=== PATIENT | male | born 1945 | race Caucasian/White ===

== ENCOUNTER 2017-12-08 15:00 | Outpatient (CLI) | payer OTHER ==
[~2017-12-08] VITALS: Ht 167.6 cm; Wt 93.0 kg
== END 2017-12-08 16:00 ==
LOC: PREOP 15:00
PROVIDERS: ATTEND Surgery
DX: Z01.818 Encounter for other preprocedural examination (principal)

== ENCOUNTER 2017-12-14 07:25 | Day surgery (SDC) | payer OTHER ==
[~2017-12-14] VITALS: Ht 167.6 cm; Wt 93.0 kg
--- OUTSIDE RECORDS SUMMARY | 2017-12-14 07:28 | XMS REPORT ---
Author Author LORI Charles [facility] Address Unknown Care Team Providers Care Multimedia Producer Name Role Phone LORI Charles Unavailable PROBLEMS Unknown Problems ALLERGIES Substance Reaction Event Type Date Status N.K.D.A. Unknown Non Drug Allergy Jun, Unknown SOCIAL HISTORY No smoking Hx information available PLAN OF CARE Activity Details Follow Up prn Reason:TE VITAL SIGNS Blood pressure systolic 137 mmHg 2016-06-29 Blood pressure diastolic 85 mmHg 2016-06-29 MEDICATIONS Medication Instructions Dosage Frequency Start Date End Date Duration Status Clonazepam 0.5 MG Orally Twice a day 1 tablet 12h Active Mupirocin Active Ledipasvir-Sofosbuvir 90-400 MG Orally Once a day 1 tablet 24h Active Aspirin Active Enalapril Maleate Active Escitalopram Oxalate Active RESULTS No Results PROCEDURES Procedure Date Ordered Related Diagnosis Body Site EXTRAC ERUPTED TOOTH/EXPOSED ROOT Jun 29, 2016 EXTRAC ERUPTED TOOTH/EXPOSED ROOT Jun 29, 2016 EXTRAC ERUPTED TOOTH/EXPOSED ROOT Jun 29, 2016 EXTRAC ERUPTED TOOTH/EXPOSED ROOT Jun 29, 2016 Billing Notes on claim Jun 29, 2016 EXTRAC ERUPTED TOOTH/EXPOSED ROOT Jun 29, 2016 IMMUNIZATIONS No Known Immunizations
--- OUTSIDE RECORDS SUMMARY | 2017-12-14 07:28 | XMS REPORT ---
Author Author YANNICK MARCANO Organization [facility] Address [address] [place] [address] Care Team Providers Care Slater Apprentice Name Role Phone YANNICK MARCANO Unavailable PROBLEMS Unknown Problems ALLERGIES No Information SOCIAL HISTORY Never Assessed PLAN OF CARE Activity Details Follow Up prn Reason: VITAL SIGNS MEDICATIONS Unknown Medications RESULTS No Results PROCEDURES Procedure Date Ordered Result Body Site INTRAORL-PERIAPICAL 1 FILM [id number] November 01, 2016 EXTRAC ERUPTED TOOTH/EXPOSED ROOT November 01, 2016 Dental Outreach adjust balance November 01, 2016 Dental no charge November 01, 2016 IMMUNIZATIONS No Known Immunizations MEDICAL (GENERAL) HISTORY Type Description Date Medical History Hep C Surgical History Gallbladder
--- OUTSIDE RECORDS SUMMARY | 2017-12-14 07:29 | XMS REPORT ---
Author Author LORI Charles [facility] Address Unknown Care Team Providers Care Prepared Foods Service Team Member Name Role Phone LORI Charles Unavailable PROBLEMS Unknown Problems ALLERGIES Substance Reaction Event Type Date Status N.K.D.A. Unknown Non Drug Allergy Jul, Unknown SOCIAL HISTORY No smoking Hx information available PLAN OF CARE Activity Details Follow Up prn Reason:all lower te VITAL SIGNS Blood pressure systolic 109 mmHg 2016-07-06 Blood pressure diastolic 62 mmHg 2016-07-06 MEDICATIONS Medication Instructions Dosage Frequency Start Date End Date Duration Status Ledipasvir-Sofosbuvir 90-400 MG Orally Once a day 1 tablet 24h Active Clonazepam 0.5 MG Orally Twice a day 1 tablet 12h Active Aspirin Active Escitalopram Oxalate Active Enalapril Maleate Active Mupirocin Active RESULTS No Results PROCEDURES Procedure Date Ordered Related Diagnosis Body Site EXTRAC ERUPTED TOOTH/EXPOSED ROOT Jul 06, 2016 EXTRAC ERUPTED TOOTH/EXPOSED ROOT Jul 06, 2016 Billing Notes on claim Jul 06, 2016 EXTRAC ERUPTED TOOTH/EXPOSED ROOT Jul 06, 2016 EXTRAC ERUPTED TOOTH/EXPOSED ROOT Jul 06, 2016 EXTRAC ERUPTED TOOTH/EXPOSED ROOT Jul 06, 2016 EXTRAC ERUPTED TOOTH/EXPOSED ROOT Jul 06, 2016 IMMUNIZATIONS No Known Immunizations
--- OUTSIDE RECORDS SUMMARY | 2017-12-14 07:29 | XMS REPORT ---
Author Author LORI Charles [facility] Address Unknown Care Team Providers Care Rate Examiner Name Role Phone LORI Charles Unavailable PROBLEMS Unknown Problems ALLERGIES Substance Reaction Event Type Date Status N.K.D.A. Unknown Non Drug Allergy Jul, Unknown SOCIAL HISTORY No smoking Hx information available PLAN OF CARE Activity Details Follow Up 6 Weeks Reason:u/l impressions for dentures VITAL SIGNS Blood pressure systolic 156 mmHg 2016-07-13 Blood pressure diastolic 105 mmHg 2016-07-13 MEDICATIONS Medication Instructions Dosage Frequency Start Date End Date Duration Status Escitalopram Oxalate Active Aspirin Active Mupirocin Active Ledipasvir-Sofosbuvir 90-400 MG Orally Once a day 1 tablet 24h Active Clonazepam 0.5 MG Orally Twice a day 1 tablet 12h Active Enalapril Maleate Active RESULTS No Results PROCEDURES Procedure Date Ordered Related Diagnosis Body Site EXTRAC ERUPTED TOOTH/EXPOSED ROOT Jul 13, 2016 EXTRAC ERUPTED TOOTH/EXPOSED ROOT Jul 13, 2016 EXTRAC ERUPTED TOOTH/EXPOSED ROOT Jul 13, 2016 EXTRAC ERUPTED TOOTH/EXPOSED ROOT Jul 13, 2016 Billing Notes on claim Jul 13, 2016 EXTRAC ERUPTED TOOTH/EXPOSED ROOT Jul 13, 2016 IMMUNIZATIONS No Known Immunizations
--- OUTSIDE RECORDS SUMMARY | 2017-12-14 07:29 | XMS REPORT ---
Author Author LORI Charles [facility] Address Unknown Care Team Providers Care Marine Engine Mechanic Name Role Phone LORI Charles Unavailable PROBLEMS Unknown Problems ALLERGIES Substance Reaction Event Type Date Status N.K.D.A. Unknown Non Drug Allergy Jun, Unknown SOCIAL HISTORY No smoking Hx information available PLAN OF CARE Activity Details Follow Up TE Reason: VITAL SIGNS Heart Rate 56 bpm 2016-06-22 Blood pressure systolic 136 mmHg 2016-06-22 Blood pressure diastolic 78 mmHg 2016-06-22 MEDICATIONS Medication Instructions Dosage Frequency Start Date End Date Duration Status Clonazepam 0.5 MG Orally Twice a day 1 tablet 12h Active Ledipasvir-Sofosbuvir 90-400 MG Orally Once a day 1 tablet 24h Active RESULTS No Results PROCEDURES Procedure Date Ordered Related Diagnosis Body Site EXTRAC ERUPTED TOOTH/EXPOSED ROOT Jun 22, 2016 EXTRAC ERUPTED TOOTH/EXPOSED ROOT Jun 22, 2016 Billing Notes on claim Jun 22, 2016 EXTRAC ERUPTED TOOTH/EXPOSED ROOT Jun 22, 2016 EXTRAC ERUPTED TOOTH/EXPOSED ROOT Jun 22, 2016 EXTRAC ERUPTED TOOTH/EXPOSED ROOT Jun 22, 2016 EXTRAC ERUPTED TOOTH/EXPOSED ROOT Jun 22, 2016 IMMUNIZATIONS No Known Immunizations
--- OUTSIDE RECORDS SUMMARY | 2017-12-14 07:29 | XMS REPORT ---
Author Author LORI Charles [facility] Address Unknown Care Team Providers Care Store Director Name Role Phone LORI Charles Unavailable PROBLEMS Unknown Problems ALLERGIES Substance Reaction Event Type Date Status N.K.D.A. Unknown Non Drug Allergy May, Unknown SOCIAL HISTORY No smoking Hx information available PLAN OF CARE Activity Details Follow Up prn Reason:1 hr upper te VITAL SIGNS Blood pressure systolic 132 mmHg 2016-05-10 Blood pressure diastolic 73 mmHg 2016-05-10 MEDICATIONS Medication Instructions Dosage Frequency Start Date End Date Duration Status Enalapril Maleate Active Mupirocin Active Escitalopram Oxalate Active Aspirin Active RESULTS No Results PROCEDURES Procedure Date Ordered Related Diagnosis Body Site LTD ORAL EVALUATION - PROBLEM FOCUS May 10, 2016 PANORAMIC FILM SEE ALSO CODE [id number] May 10, 2016 IMMUNIZATIONS No Known Immunizations
[2017-12-14] MEDS ORDERED: LACTATED RINGERS 1,000 ML IV STA (07:45)
[2017-12-14 07:47] VITALS: BP 136/88
[2017-12-14] MEDS ORDERED: NS IV 500 ML 500 ML ONE (07:54)
[2017-12-14] MEDS ORDERED: NS IV 500 ML 500 ML IV ONE (08:00)
--- NOTE | 2017-12-14 08:09 | Progress Note-Pre Operative ---
Pre-Operative Progress Note H&P Reviewed The H&P was reviewed, patient examined and no changes noted. Time Seen by Provider: 08:03 Date H&P Reviewed: Dec 14, 2017 Time H&P Reviewed: 08:05 Pre-Operative Diagnosis: screening colonoscopy ANGELO WYNN DO Dec 14, 2017 08:09
[2017-12-14] MEDS ORDERED: ESCI20TA45 PO (08:10)
[2017-12-14] MEDS ORDERED: TAMS0.4C2 PO (08:10)
[2017-12-14] MEDS ORDERED: TR1C15 TP (08:10)
[2017-12-14] MEDS ORDERED: MULT-1042 PO (08:10)
[2017-12-14] MEDS ORDERED: ASPI-983 PO (08:10)
[2017-12-14] MEDS ORDERED: CLON0.5T3 PO (08:10)
[2017-12-14] MEDS ORDERED: ENAL20TA PO (08:10)
[2017-12-14] MEDS ORDERED: MIDAZOLAM 2 MG/2 ML (VERSED) VIAL ONE (08:24)
[2017-12-14] MEDS ORDERED: PROPOFOL INJECTION 50 ML IV ONE (08:24)
--- NOTE | 2017-12-14 09:13 | Progress Note-Post Operative ---
Post-Operative Progess Note Surgeon (s)/Airborne Operations Superintendent (s) Surgeon ANGELO WYNN DO Airborne Operations Superintendent: none Pre-Operative Diagnosis screening colonoscopy Post-Operative Diagnosis colon polyps diverticula int hemorrhoids Procedure & Operative Findings Date of Procedure 12/14/17 Procedure Performed/Findings 1. Colon with snare 2. Colon with hot bx Anesthesia Type IV sedation by ZONE MANAGER Estimated Blood Loss Estimated blood loss (mL): scant Specimens/Packing Specimens Removed asc colon polyp bx x 3 pieces of same polyp sigmoid polyp ANGELO WYNN DO Dec 14, 2017 09:13
--- NOTE | 2017-12-14 09:14 | Endoscopy Discharge Instruct ---
Endo Procedure/Findings Findings 1.: Polyp 2.: Diverticulosis 3.: Internal Hemorrhoids Discharge Instructions - Activity: You might feel a little sleepy until tomorrow. This is due to the medicine you received to relax you. Until tomorrow, you should: NOT drive a car, operate machinery or power tools. NOT drink any alcoholic beverages. NOT make any important decisions or sign importortant papers. Do not return to work until tomorrow, unless otherwise instructed. Resume previous activities tomorrow. Diet: Start by taking liquids. If you tolerate liquids, advance to solid food. Make appointment for one week, Notify Physician - If you experience excessive bleeding, unusual abdominal pain, fever, or chest pain, contact your doctor immediately. Follow-Up: - I have received and understand the above instructions and will call my doctor if I have any further questions. Patient Signature Date Nurse Signature Other (Relationship) ANGELO WYNN DO Dec 14, 2017 09:14
[2017-12-14 09:20] VITALS: BP 104/69
[2017-12-14 09:50] VITALS: BP 112/71
[2017-12-14 10:00] VITALS: BP 112/71
--- NOTE | 2017-12-14 16:28 | OPERATIVE REPORT ---
DATE OF SERVICE: 12/14/2017 PREOPERATIVE DIAGNOSIS: Screening colonoscopy. POSTOPERATIVE DIAGNOSES: 1. Colon polyps. 2. Diverticula. 3. Internal hemorrhoids. PROCEDURE: 1. Colonoscopy with snare polypectomy. 2. Colonoscopy with hot biopsy. SURGEON: Lupillo Sommers DO WIDE AREA NETWORK ENGINEER: None. ANESTHESIA: IV sedation by GUN NUMBERER. SPECIMEN: One polyp from the ascending colon and one polyp from the sigmoid colon. BLOOD LOSS: Scant. FLUIDS: Per anesthesia. POSTOPERATIVE CONDITION: Stable. INDICATION FOR PROCEDURE: The patient is a 72-year-old male who needs a screening colonoscopy. FINDINGS: The patient had a small flat polyp in the ascending colon. He also had a much larger polyp in the sigmoid colon and he had large diverticula throughout and he had some small internal hemorrhoids. PROCEDURE NOTE: After informed consent was obtained, the patient was brought to the endoscopy suite and placed in the bed in left lateral decubitus position. He was administered IV sedation by the GUN NUMBERER who then monitored vitals the entire time, heart rate, blood pressure and pulse ox, and the scope was inserted, pushed all the way to about [address] in, noted large diverticula, mostly in the sigmoid and descending colon, but also throughout the colon. Got to the cecum, took a picture of appendiceal orifice, noted the ileocecal valve, then slowly withdrew the scope insufflating to look circumferentially [place] looking at the cecum up the ascending colon and in the ascending colon, saw small flat polyp. I elected to remove this with hot biopsy, able to get in 3 pieces and remove it completely. It will be sent to pathology, then continued up to the hepatic flexure, then down the transverse colon, the splenic flexure, into the descending colon and down into the sigmoid and the sigmoid, saw a larger polyp, elected to do a snare polypectomy of this. Removed the polyp in total and then continued down the sigmoid colon into the rectum, retroflexed and rectal vault, saw some minimal internal hemorrhoids, took a picture of this and then removed the scope. The patient tolerated the procedure. He was recovered in the endoscopy suite. Job ID: [id number] DocumentID: [id number] Dictated Date: 12/14/2017 11:59:54 Lumber Marker Date: 12/14/2017 16:28:20 Dictated By: LUPILLO SOMMERS DO
== END 2017-12-14 10:05 | disposition home or self-care (01) ==
LOC: ENDO 07:25
PROVIDERS: ATTEND Surgery
DX: Z12.11 Encounter for screening for malignant neoplasm of colon (principal); D12.2 Benign neoplasm of ascending colon; D12.5 Benign neoplasm of sigmoid colon; K57.30 Diverticulosis of large intestine without perforation or abscess without bleeding; K64.8 Other hemorrhoids; I10 Essential (primary) hypertension; Z79.82 Long term (current) use of aspirin; Z79.899 Other long term (current) drug therapy
CPT/HCPCS: 88305

== ENCOUNTER 2018-03-02 13:10 | Observation (INO) | payer MEDICARE, OTHER ==
[~2018-03-02] VITALS: Ht 167.6 cm; Wt 93.9 kg
[~2018-03-02 13:10] MED LIST: ASPI-983 PO; CLON0.5T13 PO; ENAL20TA PO; ESCI20TA45 PO; MULT-1042 PO; TAMS0.4C2 PO; TR1C15 TP
[2018-03-02 13:23] LABS: BASOPHILS % (AUTO) 0 % (0-10); EOSINOPHILS # (AUTO) 0.1 10^3/uL (0.0-0.3); EOSINOPHILS % (AUTO) 1 % (0-10); HEMATOCRIT 39 % (40-54); HEMOGLOBIN 13.4 G/DL (13.3-17.7); LYMPHOCYTES % (AUTO) 27 % (12-44); MEAN CORPUSCULAR HEMOGLOBIN 33 PG (25-34); MEAN CORPUSCULAR HGB CONC 34 G/DL (32-36); MEAN CORPUSCULAR VOLUME 95 FL (80-99); MEAN PLATELET VOLUME 8.7 FL (7.4-10.4); MONOCYTES # (AUTO) 0.8 X 10^3 (0.0-1.0); MONOCYTES % (AUTO) 10 % (0-12); NEUTROPHILS # (AUTO) 4.5 X 10^3 (1.8-7.8); NEUTROPHILS % (AUTO) 62 % (42-75); PLATELET COUNT 414 10^3/uL (130-400); RED BLOOD COUNT 4.11 10^6/uL (4.35-5.85); RED CELL DISTRIBUTION WIDTH 12.2 % (10.0-14.5); WHITE BLOOD COUNT 7.3 10^3/uL (4.3-11.0)
[2018-03-02] MEDS ORDERED: NS IV 1000 ML 1,000 ML ONE (13:24)
[2018-03-02 13:35] LABS: PROTHROMBIN TIME PATIENT 13.3 SEC (12.2-14.7)
[2018-03-02 13:43] LABS: ALANINE AMINOTRANSFERASE 22 U/L (0-55); ALKALINE PHOSPHATASE 56 U/L (40-136); BILIRUBIN,TOTAL 0.5 MG/DL (0.1-1.0); BUN/CREATININE RATIO 15; CALCIUM 9.6 MG/DL (8.5-10.1); CARBON DIOXIDE 23 MMOL/L (21-32); CHLORIDE 105 MMOL/L (98-107); CREATININE SERUM 1.49 MG/DL (0.60-1.30); GFR ESTIMATED 46; GLUCOSE 93 MG/DL (70-105); MAGNESIUM 2.3 MG/DL (1.8-2.4); POTASSIUM 4.2 MMOL/L (3.6-5.0); SODIUM 136 MMOL/L (135-145); TOTAL PROTEIN 7.9 GM/DL (6.4-8.2)
[2018-03-02 13:50] LABS: MYOGLOBIN SERUM 76.5 NG/ML (10.0-92.0)
[2018-03-02 14:03] LABS: TSH (THYROID ANALYZER) 1.23 UIU/ML (0.35-4.94)
--- NOTE | 2018-03-02 14:18 | Diagnostic Imaging Report ---
INDICATION: Found unresponsive.. TECHNIQUE: Single view chest 1:45 PM. CORRELATION STUDY: None FINDINGS: The heart size, mediastinal configuration and pulmonary vascularity are within normal limits. The lungs are clear with no consolidating infiltrate. There is no significant effusion or pneumothorax. IMPRESSION: 1. Negative appearing portable chest. Dictated by: Dictated on workstation # [id number]
--- NOTE | 2018-03-02 14:58 | Diagnostic Imaging Report ---
INDICATION: Unresponsive TECHNIQUE: Routine non contrast-enhanced axial images were obtained from the skull base to the vertex. COMPARISON: None. FINDINGS: The ventricles and cortical sulci are diffusely prominent, compatible with age-related volume loss. There are confluent areas of abnormal, low attenuation in the periventricular white matter. This is consistent with small vessel ischemic changes; age-indeterminate. There is no prior study available for comparison. There is no midline shift or mass-effect. No acute intra-axial hemorrhage is seen. There are no abnormal areas of increased or decreased density to suggest acute hemorrhage or edema. No extra-axial masses or collections are present. The bony calvarium is intact. The visualized paranasal sinuses are unremarkable. The mastoid air cells are partially opacified on the right. IMPRESSION: 1. No acute intracranial abnormality. No CT evidence of mass, acute infarct or intracranial hemorrhage. 2. Small vessel ischemic changes in the periventricular and subcortical white matter; likely chronic. 3. Right mastoid air cell disease. In the correct clinical setting, findings can be seen with mastoiditis. Clinical correlation is recommended. Dictated by: Dictated on workstation # [id number]
--- NOTE | 2018-03-02 15:03 | ED Syncope ---
General Chief Complaint: General Problems/Pain Stated Complaint: UNRESPONSIVE Source of Information: Patient, EMS, Old Records Exam Limitations: No Limitations History of Present Illness Date Seen by Provider: Mar 02, 2018 Time Seen by Provider: 13:06 Initial Comments This 72-year-old gentleman is brought to the emergency room by EMS staff who witnessed his syncopal episode at a local restaurant. They brought him in the EMS pickup truck as no ambulance units were in proximity. Patient was sitting on a barstool at the restaurant when he suddenly became very diaphoretic. While EMS personnel were attempting to obtain a blood pressure the patient became unresponsive. His unresponsive episode lasted approximately 15-20 seconds. During that time a pulse was not palpable. Patient then became arousable and the pulse was palpated around 40 bpm. Manual blood pressure readings were attempted but could not be obtained. The fire department arrived and assessed vital signs with pulse oximetry. Heart rate was 46 at that time and patient was alert. Patient was able to ambulate to the trunk with assistance. Patient reported his leg felt weak or "asleep" but that resolved. Patient denies any chest pain, lightheadedness, shortness of breath, or other acute symptoms. He is grossly diaphoretic on arrival. Fingerstick blood sugar on arrival was 97. Patient goes to a clinic in [facility] for his primary care. Timing/Prior Episodes: No Prior History Symptoms Prior to Episode: Diaphoresis Precipitating Factors: None Episode Description: 15-20 sec Loss of Consciousness: Brief (Seconds) Current Symptoms: Back to Normal Allergies and Home Medications Allergies Coded Allergies: No Known Drug Allergies (Unverified , 12/08/17) Home Medications Aspirin 81 Mg Tablet.dr, 81 MG PO DAILY, (Reported) Clonazepam 0.5 Mg Tablet, 0.5 MG PO BID, (Reported) Escitalopram Oxalate 20 Mg Tablet, 20 MG PO DAILY, (Reported) Multivit-Min/Iron Fum/Folic AC 1 Each Tablet, 1 EACH PO DAILY, (Reported) Tamsulosin HCl 0.4 Mg Cap.er.24h, 0.4 MG PO DAILY, (Reported) Patient Home Medication List Home Medication List Reviewed: Yes Review of Systems Constitutional: see HPI EENTM: no symptoms reported Respiratory: no symptoms reported Cardiovascular: see HPI Gastrointestinal: no symptoms reported Genitourinary: no symptoms reported Musculoskeletal: no symptoms reported Skin: see HPI Psychiatric/Neurological: See HPI Past Ndppwrh-Jisscs-Sicmwz Hx Past Med/Social Hx: Reviewed and Corrections made Patient Social History Alcohol Use: Denies Use Recreational Drug Use: No Smoking Status: Never a Smoker Recent Hopitalizations: No Immunizations Up To Date Tetanus Booster (TDap): Unknown Seasonal Allergies Seasonal Allergies: No Past Medical History Surgeries: Yes Abdominal (colonoscopy with polypectomy), Gallbladder Respiratory: No Currently Using CPAP: No Currently Using BIPAP: No Cardiac: Yes Hypertension Neurological: Yes Traumatic Brain Injury Reproductive Disorders: No Sexually Transmitted Disease: No HIV/AIDS: No Genitourinary: Yes Prostate Problems Gastrointestinal: Yes Diverticulosis, Hemorrhoids, Hepatitis (hepatitis C treated and cured), Polyps Musculoskeletal: No Endocrine: No Cataract Loss of Vision: Denies Hearing Impairment: Denies Cancer: No Psychosocial: Yes Anxiety, Depression Integumentary: No Physical Exam Vital Signs Vital Signs - First Documented 03/02/18 13:10 Temp 98.6 Pulse 77 Resp 19 B/P (MAP) 106/89 (95) Capillary Refill : Height, Weight, BMI Height: 5'6.00" Weight: 205lbs. 0.0oz. 92.234928nv; 33.1 BMI Method: General Appearance: No Apparent Distress, WD/WN, Other (diaphoretic) HEENT: PERRL/EOMI, Normal ENT Inspection, Other (no tenderness over the mastoids) Neck: Normal Inspection Cardiovascular: Regular Rate, Rhythm, No Edema, No Murmur, Normal Peripheral Pulses Respiratory: Lungs Clear, Normal Breath Sounds, No Accessory Muscle Use, No Respiratory Distress Gastrointestinal: Normal Bowel Sounds, Non Tender, Soft Back: Normal Inspection, No Vertebral Tenderness Extremities: Normal Inspection, No Pedal Edema Neurologic/Psychiatric: Oriented x3, No Motor/Sensory Deficits, Normal Mood/ Affect, watermaster II-XII Norm as Tested Cranial Nerves: Normal Hearing, Normal Speech, PERRL Coordination/Gait: Normal Gait Motor/Sensory: No Motor Deficit, No Sensory Deficit, No Pronator Drift Skin: Normal Color, Diaphoresis Progress/Results/Core Measures Results/Orders Lab Results Laboratory Tests Test 03/02/18 13:12 03/02/18 13:27 03/02/18 14:59 Range/Units White Blood Count 7.3 4.3-11.0 10^3/uL Red Blood Count 4.11 L 4.35-5.85 10^6/uL Hemoglobin 13.4 13.3-17.7 G/DL Hematocrit 39 L 40-54 % Mean Corpuscular Volume 95 80-99 FL Mean Corpuscular Hemoglobin 33 25-34 PG Mean Corpuscular Hemoglobin Concent 34 32-36 G/DL Red Cell Distribution Width 12.2 10.0-14.5 % Platelet Count 414 H 130-400 10^3/uL Mean Platelet Volume 8.7 7.4-10.4 FL Neutrophils (%) (Auto) 62 42-75 % Lymphocytes (%) (Auto) 27 12-44 % Monocytes (%) (Auto) 10 0-12 % Eosinophils (%) (Auto) 1 0-10 % Basophils (%) (Auto) 0 0-10 % Neutrophils # (Auto) 4.5 1.8-7.8 X 10^3 Lymphocytes # (Auto) 2.0 1.0-4.0 X 10^3 Monocytes # (Auto) 0.8 0.0-1.0 X 10^3 Eosinophils # (Auto) 0.1 0.0-0.3 10^3/uL Basophils # (Auto) 0.0 0.0-0.1 10^3/uL Prothrombin Time 13.3 12.2-14.7 SEC INR Comment 1.0 0.8-1.4 Activated Partial Thromboplast Time 24 24-35 SEC Sodium Level 136 135-145 MMOL/L Potassium Level 4.2 3.6-5.0 MMOL/L Chloride Level 105 98-107 MMOL/L Carbon Dioxide Level 23 21-32 MMOL/L Anion Gap 8 5-14 MMOL/L Blood Urea Nitrogen 22 H 7-18 MG/DL Creatinine 1.49 H 0.60-1.30 MG/DL Estimat Glomerular Filtration Rate 46 BUN/Creatinine Ratio 15 Glucose Level 93 70-105 MG/DL Calcium Level 9.6 8.5-10.1 MG/DL Corrected Calcium 9.6 8.5-10.1 MG/DL Magnesium Level 2.3 1.8-2.4 MG/DL Total Bilirubin 0.5 0.1-1.0 MG/DL Aspartate Amino Transf (AST/SGOT) 26 5-34 U/L Alanine Aminotransferase (ALT/SGPT) 22 0-55 U/L Alkaline Phosphatase 56 40-136 U/L Myoglobin 76.5 10.0-92.0 NG/ML Troponin I < 0.30 <0.30 NG/ML Total Protein 7.9 6.4-8.2 GM/DL Albumin 4.0 3.2-4.5 GM/DL TSH [place] Testing 1.23 0.35-4.94 UIU/ML Serum Alcohol < 10 <10 MG/DL C-Reactive Protein High Sensitivity 0.15 0.00-0.50 MG/DL Urine Color YELLOW Urine Clarity CLEAR Urine pH 7 5-9 Urine Specific [place] 1.010 L 1.016-1.022 Urine Protein 1+ H NEGATIVE Urine Glucose (UA) NEGATIVE NEGATIVE Urine Ketones NEGATIVE NEGATIVE Urine Nitrite NEGATIVE NEGATIVE Urine Bilirubin NEGATIVE NEGATIVE Urine Urobilinogen NORMAL NORMAL MG/DL Urine Leukocyte Esterase NEGATIVE NEGATIVE Urine RBC (Auto) 1+ H NEGATIVE Urine RBC 0-2 /HPF Urine WBC NONE /HPF Urine Squamous Epithelial Cells RARE /HPF Urine Crystals NONE /LPF Urine Bacteria NONE /HPF Urine Casts NONE /LPF Urine Mucus NEGATIVE /LPF Urine Culture Indicated NO Urine Opiates Screen NEGATIVE NEGATIVE Urine Oxycodone Screen NEGATIVE NEGATIVE Urine Methadone Screen NEGATIVE NEGATIVE Urine Propoxyphene Screen NEGATIVE NEGATIVE Urine Barbiturates Screen NEGATIVE NEGATIVE Ur Tricyclic Antidepressants Screen NEGATIVE NEGATIVE Urine Phencyclidine Screen NEGATIVE NEGATIVE Urine Amphetamines Screen NEGATIVE NEGATIVE Urine Methamphetamines Screen NEGATIVE NEGATIVE Urine Benzodiazepines Screen NEGATIVE NEGATIVE Urine Cocaine Screen NEGATIVE NEGATIVE Urine Cannabinoids Screen NEGATIVE NEGATIVE My Orders Orders - VIOLETTA SALCIDO MD Cbc With Automated Diff (03/02/18 13:12) Magnesium (03/02/18 13:12) Chest 1 View, Ap/Pa Only (03/02/18 13:12) Ekg Tracing (03/02/18 13:12) Cardiac Profile 1 (03/02/18 13:12) Comprehensive Metabolic Panel (03/02/18 13:12) Myoglobin Serum (03/02/18 13:12) Protime With Inr (03/02/18 13:12) Partial Thromboplastin Time (03/02/18 13:12) O2 (03/02/18 13:12) Monitor-Rhythm Ecg Trace Only (03/02/18 13:12) Lipid Panel (03/03/18 06:00) Saline Lock/Iv-Start (03/02/18 13:12) Alcohol (03/02/18 13:12) Drug Screen Stat (Urine) (03/02/18 13:12) Thyroid Analyzer (03/02/18 13:12) Ua Culture If Indicated (03/02/18 13:12) Ns Iv 1000 Ml (Sodium Chloride 0.9%) (03/02/18 13:24) Hs C Reactive Protein (03/02/18 13:37) Ct Head Wo (03/02/18 14:40) Ns Iv 1000 Ml (Sodium Chloride 0.9%) (03/02/18 15:07) Ns Iv 1000 Ml (Sodium Chloride 0.9%) (03/02/18 15:07) Medications Given in ED Vital Signs/I&O 03/02/18 13:10 Temp 98.6 Pulse 77 Resp 19 B/P (MAP) 106/89 (95) Progress Progress Note : Time: 14:59 Progress Note Patient developed asymptomatic hypotension while in the ER. He received a liter of IV fluid which resolved the hypotension. Workup was relatively unremarkable except for some mild renal insufficiency. Case was discussed with Dr. Alford. He requested a CT of the head be performed. This will be done without contrast due to his renal function. Family is now present and provides additional history. Patient has no history of cardiac disease. He had one near syncopal episode many years ago which was volume related. Patient continues to deny chest pain, lightheadedness, shortness of breath, or other symptoms. EKG #1: EKG Time: 13:11 Rate: 66 Rhythm: Normal Sinus Intervals: Normal ECG Impression: Normal Comment Normal sinus rhythm with no abnormal intervals or axis deviation. There are subtle nondiagnostic ST changes. No overt ST elevation or depression to suggest ischemia. EKG #2: EKG Time: 13:43 Rate: 67 Rhythm: Normal Sinus Intervals: Normal ECG Impression: Normal Comment Normal sinus rhythm with no abnormal intervals or axis deviation. There are subtle nondiagnostic ST changes. No overt ST elevation or depression to suggest ischemia. Diagnostic Imaging Diagonstic Imaging: Xray Plain Films/CT/US/NM/MRI: chest Comments Chest x-ray report reviewed. See report below: NAME: RIZWANA BEVERLY Andre [facility] REC#: [id number] PT STATUS: REG ER : 1945 PHYSICIAN: VIOLETTA SALCIDO MD ADMIT DATE: 03/02/18/ER Signed Date of Exam: 03/02/18 CHEST 1 VIEW, AP/PA ONLY INDICATION: Found unresponsive.. TECHNIQUE: Single view chest 1:45 PM. CORRELATION STUDY: None FINDINGS: The heart size, mediastinal configuration and pulmonary vascularity are within normal limits. The lungs are clear with no consolidating infiltrate. There is no significant effusion or pneumothorax. IMPRESSION: 1. Negative appearing portable chest. Dictated by: Dictated on workstation # [id number] Dict: 03/02/18 1415 Trans: 03/02/18 141 Interpreted by: MARIA EUGENIA DICKENS DO Electronically signed by: MARIA EUGENIA DICKENS DO 03/02/181415 Diagonstic Imaging: CT Plain Films/CT/US/NM/MRI: head Comments CT head viewed by me and report reviewed. See report below: NAME: RIZWANA BEVERLY [facility] REC#: [id number] PT STATUS: REG ER : 1945 PHYSICIAN: VIOLETTA SALCIDO MD ADMIT DATE: 03/02/18/ER Draft Date of Exam:03/02/18 CT HEAD WO INDICATION: Unresponsive TECHNIQUE: Routine non contrast-enhanced axial images were obtained from the skull base to the vertex. COMPARISON: None. FINDINGS: The ventricles and cortical sulci are diffusely prominent, compatible with age-related volume loss. There are confluent areas of abnormal, low attenuation in the periventricular white matter. This is consistent with small vessel ischemic changes; age-indeterminate. There is no prior study available for comparison. There is no midline shift or mass-effect. No acute intra-axial hemorrhage is seen. There are no abnormal areas of increased or decreased density to suggest acute hemorrhage or edema. No extra-axial masses or collections are present. The bony calvarium is intact. The visualized paranasal sinuses are unremarkable. The mastoid air cells are partially opacified on the right. IMPRESSION: 1. No acute intracranial abnormality. No CT evidence of mass, acute infarct or intracranial hemorrhage. 2. Small vessel ischemic changes in the periventricular and subcortical white matter; likely chronic. 3. Right mastoid air cell disease. In the correct clinical setting, findings can be seen with mastoiditis. Clinical correlation is recommended. Dictated on workstation # [id number] Dict: 03/02/18 1456 Trans: 03/02/18 1458 [facility] [id number] Interpreted by: NOEMI BULLARD MD Departure Communication (Admissions) Time/Spoke to Admitting Phy: 15:35 Dr. Farrell Time/Spoke to Consulting Phy: 15:26 Dr. Alford Impression Primary Impression: Syncope Qualified Codes: R55 - Syncope and collapse Additional Impressions: Hypotension Qualified Codes: I95.9 - Hypotension, unspecified Diaphoresis Renal insufficiency Disposition: ADMITTED INPATIENT Condition: Improved Admissions Decision to Admit Reason: Admit from ER (General) Decision to Admit/Date: Mar 02, 2018 Time/Decision to Admit Time: 13:10 Departure-Patient Inst. Referrals: NO,LOCAL PHYSICIAN (PCP) Primary Care Physician VIOLETTA SALCIDO MD Mar 02, 2018 15:03
[2018-03-02 15:04] LABS: BILIRUBIN,URINE NEGATIVE (NEGATIVE); CLARITY,URINE CLEAR; COLOR,URINE YELLOW; GLUCOSE, URINE (UA) NEGATIVE (NEGATIVE); KETONES,URINE NEGATIVE (NEGATIVE); LEUKOCYTE ESTERASE ,URINE NEGATIVE (NEGATIVE); NITRITE,URINE NEGATIVE (NEGATIVE); PH,URINE 7 (5-9); PROTEIN,URINE 1+ (NEGATIVE); UROBILINOGEN,URINE NORMAL (NORMAL)
[2018-03-02] MEDS ORDERED: NS IV 1000 ML 1,000 ML IV ONE ×2 (15:07)
[2018-03-02 15:15] LABS: RBC,URINE 0-2 /HPF; SQUAMOUS EPITHELIAL CELL,UR RARE /HPF
[2018-03-02 15:17] LABS: AMPHETAMINE SCREEN, URINE NEGATIVE (NEGATIVE); BARBITURATE SCREEN URINE NEGATIVE (NEGATIVE); BENZODIAZEPINES SCREEN URINE NEGATIVE (NEGATIVE); CANNABINOID SCREEN, URINE NEGATIVE (NEGATIVE); COCAINE SCREEN URINE NEGATIVE (NEGATIVE); METHADONE STAT NEGATIVE (NEGATIVE); METHAMPHETAMINE SCREEN URINE S NEGATIVE (NEGATIVE); OPIATE SCREEN URINE NEGATIVE (NEGATIVE); OXYCODONE STAT NEGATIVE (NEGATIVE); PROPOXYPHENE STAT NEGATIVE (NEGATIVE); TRICYCLIC ANTIDEPRESSANTS SCRE NEGATIVE (NEGATIVE)
[2018-03-02] MEDS ORDERED: LIDOCAINE 1% INJ 20 ML 20 ML VIAL INJ ONE (15:45)
[2018-03-02] MEDS ORDERED: TETANUS,DIPTH,PERTUSS P/F (BOOSTRIX) 0.5 ML VIAL IM ONE (15:45)
[2018-03-02] MEDS ORDERED: LORazepam 0.5 MG (ATIVAN) TABLET PO ONE (15:45)
[2018-03-02 17:00] VITALS: BP 118/65
[2018-03-02 17:15] VITALS: BP 104/55
[2018-03-02] MEDS ORDERED: CATHETER FLUSH 10 ML SYR IV PRN (17:15)
--- NOTE | 2018-03-02 17:31 | Consultation-Cardiology ---
HPI-Cardiology Cardiology Consultation: Date of Consultation 03/02/18 Time Seen by Provider: 16:45 Date of Admission Attending Physician Rachele Farrell MD Admitting Physician No,Local Physician Consulting Physician SHAKEEL HAYDEN MD, MA, FACP, FACC, FSCAI, CCDS HPI: Chief Complaint: Reason for consult: Syncope 72 yo man who passed out at a local diner today. Syncope was witnessed by an EMT who found no pulse during the time of passing out. This lasted approx 10 sec. Subsequently, reportedly, there was pulse at the rate of approx 40 bpm. He was brought to the ER and was hypotensive in the ER. This responded to if fluids He denies cp or palp or shortness of breath or leg swelling Review of Systems-Cardiology Review of Systems Constitutional: No malaise, No tiredness, No weight loss, No weight gain Eyes: No vision change Ears/Nose/Throat: No ear discharge, No nasal drainage, No recent hearing loss Respiratory: As described under HPI Cardiovascular: As described under HPI Gastrointestinal: No constipation, No diarrhea, No nausea, No vomiting Genitourinary: No hematuria Musculoskeletal: No back pain, No joint pain Skin: No rash, No ulcerations Psychiatric/Neurological: No seizure, No focal weakness, No syncope Hematologic: No bleeding abnormalities [id number] Hx Immunizations Up To Date Tetanus Booster (TDap): Unknown Past Medical History PMH As described under Assessment. Family Medical History Family Medical History: He does not report fam h/o early CAD or SCD Denies tobacco use Allergies and Home Medications Allergies Coded Allergies: No Known Drug Allergies (Unverified , 12/08/17) Home Medications Aspirin 81 Mg Tablet.dr, 81 MG PO DAILY, (Reported) Clonazepam 0.5 Mg Tablet, 0.5 MG PO BID, (Reported) Enalapril Maleate 20 Mg Tablet, 20 MG PO DAILY, (Reported) Escitalopram Oxalate 20 Mg Tablet, 20 MG PO DAILY, (Reported) Multivit-Min/Iron Fum/Folic AC 1 Each Tablet, 1 EACH PO DAILY, (Reported) Tamsulosin HCl 0.4 Mg Cap.er.24h, 0.4 MG PO DAILY, (Reported) Patient Home Medication List Home Medication List Reviewed: Yes Physical Exam-Cardiology Physical Exam Vital Signs/I&O Capillary Refill : Constitutional: AAO x 3, well-developed, other HEENT: EOMI, hearing is well preserved; No xanthelasmas are seen Neck: No carotid bruit; carotid pulses are 2 + bilaterally, with good upstrokes Respiratory: No accessory muscle use; lungs clear to auscultation Cardiovascular: regular rate-rhythm, S1 and S2, systolic murmur (faint JUAN MANUEL at card base) Gastrointestinal: No tender; soft; No guarding, No rebound; audible bowel sounds Extremities: No clubbing, No cyanosis, No significant edema Neurologic/Psychiatric: oriented x 3, grossly intact, power is 5/5 both on sides Skin: No rash on exposed areas, No ulcerations on exposed areas Data Review Labs Laboratory Tests 03/02/18 13:12: White Blood Count 7.3, Red Blood Count 4.11L, Hemoglobin 13.4, Hematocrit 39L, Mean Corpuscular Volume 95, Mean Corpuscular Hemoglobin 33, Mean Corpuscular Hemoglobin Concent 34, Red Cell Distribution Width 12.2, Platelet Count 414H, Mean Platelet Volume 8.7, Neutrophils (%) (Auto) 62, Lymphocytes (%) (Auto) 27, Monocytes (%) (Auto) 10, Eosinophils (%) (Auto) 1, Basophils (%) (Auto) 0, Neutrophils # (Auto) 4.5, Lymphocytes # (Auto) 2.0, Monocytes # (Auto) 0.8, Eosinophils # (Auto) 0.1, Basophils # (Auto) 0.0, Prothrombin Time 13.3, INR Comment 1.0, Activated Partial Thromboplast Time 24, Sodium Level 136, Potassium Level 4.2, Chloride Level 105, Carbon Dioxide Level 23, Anion Gap 8, Blood Urea Nitrogen 22H, Creatinine 1.49H, Estimat Glomerular Filtration Rate 46 , BUN/Creatinine Ratio 15, Glucose Level 93, Calcium Level 9.6, Corrected Calcium 9.6, Magnesium Level 2.3, Total Bilirubin 0.5, Aspartate Amino Transf ( AST/SGOT) 26, Alanine Aminotransferase (ALT/SGPT) 22, Alkaline Phosphatase 56, Myoglobin 76.5, Troponin I < 0.30, Total Protein 7.9, Albumin 4.0, TSH [place] [facility] 1.23, Serum Alcohol < 10 03/02/18 13:27: C-Reactive Protein High Sensitivity 0.15 03/02/18 14:59: Urine Color YELLOW, Urine Clarity CLEAR, Urine pH 7, Urine Specific [place] 1.010L, Urine Protein 1+H, Urine Glucose (UA) NEGATIVE, Urine Ketones NEGATIVE, Urine Nitrite NEGATIVE, Urine Bilirubin NEGATIVE, Urine Urobilinogen NORMAL, Urine Leukocyte Esterase NEGATIVE, Urine RBC (Auto) 1+H, Urine RBC 0-2, Urine WBC NONE, Urine Squamous Epithelial Cells RARE, Urine Crystals NONE, Urine Bacteria NONE, Urine Casts NONE, Urine Mucus NEGATIVE, Urine Culture Indicated NO, Urine Opiates Screen NEGATIVE, Urine Oxycodone Screen NEGATIVE, Urine Methadone Screen NEGATIVE, Urine Propoxyphene Screen NEGATIVE, Urine Barbiturates Screen NEGATIVE, Ur Tricyclic Antidepressants Screen NEGATIVE, Urine Phencyclidine Screen NEGATIVE, Urine Amphetamines Screen NEGATIVE, Urine Methamphetamines Screen NEGATIVE, Urine Benzodiazepines Screen NEGATIVE, Urine Cocaine Screen NEGATIVE, Urine Cannabinoids Screen NEGATIVE Laboratory Tests 03/02/18 13:12 A/P-Cardiology Assessment/Admission Diagnosis Syncope. Arrhythmia suspected Hypertension CKD 3 H/o prostate enlargement H/o depression Discussion and Recomendations * Monitor rhythm on tele * Monitor labs * Potential etiologies of syncope discussed with patient and his family SHAKEEL HAYEDN MD FACP FAC CCDS Mar 02, 2018 17:31
[2018-03-02] MEDS: NS IV 1000 ML 1,000 ML IV SCH (17:43)
[2018-03-02 17:45] VITALS: BP 128/74
[2018-03-02 18:00] VITALS: BP 126/69
[2018-03-02 20:07] VITALS: BP 107/75
[2018-03-03 01:00] VITALS: BP 113/69
[2018-03-03] MEDS: NS IV 1000 ML 1,000 ML IV SCH ×2 (01:18→01:32)
[2018-03-03 03:44] LABS: BASOPHILS % (AUTO) 0 % (0-10); EOSINOPHILS # (AUTO) 0.1 10^3/uL (0.0-0.3); EOSINOPHILS % (AUTO) 1 % (0-10); HEMATOCRIT 32 % (40-54); HEMOGLOBIN 11.2 G/DL (13.3-17.7); LYMPHOCYTES # (AUTO) 1.2 X 10^3 (1.0-4.0); LYMPHOCYTES % (AUTO) 18 % (12-44); MEAN CORPUSCULAR HEMOGLOBIN 33 PG (25-34); MEAN CORPUSCULAR HGB CONC 35 G/DL (32-36); MEAN CORPUSCULAR VOLUME 96 FL (80-99); MEAN PLATELET VOLUME 9.3 FL (7.4-10.4); MONOCYTES # (AUTO) 0.6 X 10^3 (0.0-1.0); MONOCYTES % (AUTO) 8 % (0-12); NEUTROPHILS # (AUTO) 4.9 X 10^3 (1.8-7.8); NEUTROPHILS % (AUTO) 73 % (42-75); PLATELET COUNT 272 10^3/uL (130-400); RED BLOOD COUNT 3.39 10^6/uL (4.35-5.85); RED CELL DISTRIBUTION WIDTH 12.1 % (10.0-14.5); WHITE BLOOD COUNT 6.7 10^3/uL (4.3-11.0)
[2018-03-03 04:19] LABS: BUN/CREATININE RATIO 21; CALCIUM 8.4 MG/DL (8.5-10.1); CARBON DIOXIDE 17 MMOL/L (21-32); CHLORIDE 111 MMOL/L (98-107); CREATININE SERUM 1.02 MG/DL (0.60-1.30); GFR ESTIMATED > 60; GLUCOSE 90 MG/DL (70-105); POTASSIUM 4.3 MMOL/L (3.6-5.0); SODIUM 137 MMOL/L (135-145)
[2018-03-03 04:22] LABS: CHOLESTEROL 128 MG/DL (< 200); HDL CHOLESTEROL 30 MG/DL (40-60); TRIGLYCERIDES 40 MG/DL (<150); VLDL CHOLESTEROL 8 MG/DL (5-40)
--- NOTE | 2018-03-03 05:21 | Pulmonary Consultation ---
History of Present Illness History of Present Illness Date of Consultation 03/03/18 05:15 Time Seen by Provider: 05:15 Date of Admission History of Present Illness 72yo presented to ED via EMS after diaphoresis and s/p syncope at a restaurant. PT became unresponsive again while EMS was taking BP. HR was noted to be in the 40's. Denies CP, lightheadedness, SOB. BS was 97. UDS is negative, troponin is neg x 1. Allergies and Home Medications Allergies Coded Allergies: No Known Drug Allergies (Unverified , 12/08/17) Home Medications Aspirin 81 Mg Tablet.dr, 81 MG PO DAILY, (Reported) Clonazepam 0.5 Mg Tablet, 0.5 MG PO BID, (Reported) Enalapril Maleate 20 Mg Tablet, 20 MG PO DAILY, (Reported) Escitalopram Oxalate 20 Mg Tablet, 20 MG PO DAILY, (Reported) Multivit-Min/Iron Fum/Folic AC 1 Each Tablet, 1 EACH PO DAILY, (Reported) Tamsulosin HCl 0.4 Mg Cap.er.24h, 0.4 MG PO DAILY, (Reported) Past Gyuhwgj-[id number]-Tfctcf Hx Patient Social History Alcohol Use: Denies Use Recreational Drug Use: No Smoking Status: Never a Smoker Recent Foreign Travel: No Contact w/Someone Who Travel: No Recent Infectious Disease Expo: No Recent Hopitalizations: No Immunizations Up To Date Tetanus Booster (TDap): Unknown Seasonal Allergies Seasonal Allergies: No Past Medical History Surgeries: Yes Gallbladder Respiratory: No Currently Using CPAP: No Currently Using BIPAP: No Cardiac: Yes Hypertension Neurological: Yes Traumatic Brain Injury Reproductive Disorders: No Sexually Transmitted Disease: No HIV/AIDS: No Genitourinary: Yes Prostate Problems Gastrointestinal: Yes Hepatitis Musculoskeletal: No Endocrine: No Cataract Loss of Vision: Denies Hearing Impairment: Denies Cancer: No Psychosocial: Yes Anxiety, Depression Integumentary: No Blood Disorders: No Review of Systems Time Seen by Provider: 05:21 Constitutional: Sweats, Weakness, Malaise; No: Fever, Chills Eyes: No: Pain, Vision change, Conjunctivae inflammation, Eyelid inflammation, Other, Redness ENT: Nose congestion Respiratory: No: Cough, Dry, Shortness of breath, SOB with excertion, Wheezing , Hemoptysis, Pleuritic Pain, Sputum, Wheezing, Other Cardiovascular: No: Chest Pain, Palpitations, Orthopnea, Paroxysmal Noc. Dyspnea, Edema, Lt Headedness, Other Neurological: Weakness, Incoordination Sepsis Event Evaluation Height, Weight, BMI Height: 5'6.00" Weight: 202lbs. 0.0oz. 91.528479vn; 32.6 BMI Method: Exam Exam Vital Signs Date Time Temp Pulse Resp B/P (MAP) Pulse Ox O2 Delivery O2 Flow Rate FiO2 03/03/18 04:00 99 Room Air 03/03/18 01:00 97.7 57 16 113/69 (84) 97 Room Air 03/03/18 01:00 58 03/03/18 00:00 97 Room Air 03/02/18 21:00 97 Room Air 03/02/18 20:07 98.1 65 20 107/75 (86) 97 Room Air 03/02/18 20:00 98 Room Air 03/02/18 19:00 62 03/02/18 18:00 67 126/69 (88) 97 Room Air 03/02/18 17:45 63 128/74 (92) 97 Room Air 03/02/18 17:15 63 104/55 (71) 96 Room Air 03/02/18 17:00 60 118/65 (82) 99 Room Air 03/02/18 17:00 97.8 03/02/18 17:00 Room Air 03/02/18 16:58 59 I & O 03/03/18 07:00 Intake Total 1200 ml Balance 1200 ml Height & Weight Height: 5'6.00" Weight: 202lbs. 0.0oz. 91.090943tj; 32.6 BMI Method: General Appearance: No Apparent Distress, WD/WN, Other (diaphoretic) HEENT: PERRL/EOMI, Normal ENT Inspection, Other (no tenderness over the mastoids) Neck: Normal Inspection Respiratory: Lungs Clear, Normal Breath Sounds, No Accessory Muscle Use, No Respiratory Distress Cardiovascular: Regular Rate, Rhythm, No Edema, No Murmur, Normal Peripheral Pulses Extremity: Normal Inspection, No Pedal Edema Neurologic/Psychiatric: Oriented x3, No Motor/Sensory Deficits, Normal Mood/ Affect, lead database administrator II-XII Norm as Tested Skin: Normal Color, Diaphoresis Results Lab Laboratory Tests 03/02/18 13:12 03/03/18 03:15 Assessment/Plan Assessment/Plan s/p syncope -Echocardiogram, carotid dopplers pending -IVF -repeat [place], troponins sinus bradycardia -Cardiology pendign TONY OSCAR DO Mar 03, 2018 05:20
[2018-03-03 06:00] VITALS: BP 118/69
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
[2018-03-03] MEDS ORDERED: 1/2 NS IV SOLUTION 1,000 ML IV SCH (08:00)
[2018-03-03 08:30] VITALS: BP 108/67
[2018-03-03] MEDS ORDERED: ASPIRIN 81 MG CHEW (CHILDREN'S ASA) PO SCH (09:00)
[2018-03-03 12:00] VITALS: BP 125/72
--- NOTE | 2018-03-03 13:05 | Progress Note-Cardiology ---
Cardiology SOAP Progress Note Subjective: No recurrence of syncope No cp or palp or shortness of breath Wishes to go home Objective: I&O/Vital Signs 03/03/18 03/03/18 03/03/18 03/03/18 01:00 01:00 04:00 06:00 Temp 97.7 98.0 Pulse 58 57 58 Resp 16 18 B/P (MAP) 113/69 (84) 118/69 (85) Pulse Ox 97 99 98 O2 Delivery Room Air Room Air Room Air 03/03/18 03/03/18 03/03/18 03/03/18 07:00 08:00 08:00 08:30 Temp 98.1 Pulse 76 55 Resp 18 B/P (MAP) 108/67 (81) Pulse Ox 98 98 98 O2 Delivery Room Air Room Air Room Air 03/03/18 03/03/18 12:00 12:00 Temp 97.9 Pulse 59 Resp 18 B/P (MAP) 125/72 (89) Pulse Ox 98 98 O2 Delivery Room Air Room Air 03/03/18 00:00 Intake Total 1200 ml Balance 1200 ml Weight (Pounds): 207 Weight (Ounces): 0.0 Weight (Calculated Kilograms): 93.664924 Constitutional: AAO x 3, well-developed, other Respiratory: No accessory muscle use; lungs clear to auscultation Cardiovascular: regular rate-rhythm, S1 and S2, systolic murmur (faint JUAN MANUEL at card base) Gastrointestional: No tender; soft; No guarding, No rebound; audible bowel sounds Extremities: No clubbing, No cyanosis, No significant edema Neurologic/Psychiatric: oriented x 3, grossly intact, power is 5/5 both on sides Skin: No rash on exposed areas, No ulcerations on exposed areas Results/Procedures: Labs Laboratory Tests 03/02/18 13:12: White Blood Count 7.3, Red Blood Count 4.11L, Hemoglobin 13.4, Hematocrit 39L, Mean Corpuscular Volume 95, Mean Corpuscular Hemoglobin 33, Mean Corpuscular Hemoglobin Concent 34, Red Cell Distribution Width 12.2, Platelet Count 414H, Mean Platelet Volume 8.7, Neutrophils (%) (Auto) 62, Lymphocytes (%) (Auto) 27, Monocytes (%) (Auto) 10, Eosinophils (%) (Auto) 1, Basophils (%) (Auto) 0, Neutrophils # (Auto) 4.5, Lymphocytes # (Auto) 2.0, Monocytes # (Auto) 0.8, Eosinophils # (Auto) 0.1, Basophils # (Auto) 0.0, Prothrombin Time 13.3, INR Comment 1.0, Activated Partial Thromboplast Time 24, Sodium Level 136, Potassium Level 4.2, Chloride Level 105, Carbon Dioxide Level 23, Anion Gap 8, Blood Urea Nitrogen 22H, Creatinine 1.49H, Estimat Glomerular Filtration Rate 46 , BUN/Creatinine Ratio 15, Glucose Level 93, Calcium Level 9.6, Corrected Calcium 9.6, Magnesium Level 2.3, Total Bilirubin 0.5, Aspartate Amino Transf ( AST/SGOT) 26, Alanine Aminotransferase (ALT/SGPT) 22, Alkaline Phosphatase 56, Myoglobin 76.5, Troponin I < 0.30, Total Protein 7.9, Albumin 4.0, TSH [place] Testing 1.23, Serum Alcohol < 10 03/02/18 13:27: C-Reactive Protein High Sensitivity 0.15 03/02/18 14:59: Urine Color YELLOW, Urine Clarity CLEAR, Urine pH 7, Urine Specific [place] 1.010L, Urine Protein 1+H, Urine Glucose (UA) NEGATIVE, Urine Ketones NEGATIVE, Urine Nitrite NEGATIVE, Urine Bilirubin NEGATIVE, Urine Urobilinogen NORMAL, Urine Leukocyte Esterase NEGATIVE, Urine RBC (Auto) 1+H, Urine RBC 0-2, Urine WBC NONE, Urine Squamous Epithelial Cells RARE, Urine Crystals NONE, Urine Bacteria NONE, Urine Casts NONE, Urine Mucus NEGATIVE, Urine Culture Indicated NO, Urine Opiates Screen NEGATIVE, Urine Oxycodone Screen NEGATIVE, Urine Methadone Screen NEGATIVE, Urine Propoxyphene Screen NEGATIVE, Urine Barbiturates Screen NEGATIVE, Ur Tricyclic Antidepressants Screen NEGATIVE, Urine Phencyclidine Screen NEGATIVE, Urine Amphetamines Screen NEGATIVE, Urine Methamphetamines Screen NEGATIVE, Urine Benzodiazepines Screen NEGATIVE, Urine Cocaine Screen NEGATIVE, Urine Cannabinoids Screen NEGATIVE 03/03/18 03:15: White Blood Count 6.7, Red Blood Count 3.39L, Hemoglobin 11.2L, Hematocrit 32L, Mean Corpuscular Volume 96, Mean Corpuscular Hemoglobin 33, Mean Corpuscular Hemoglobin Concent 35, Red Cell Distribution Width 12.1, Platelet Count 272, Mean Platelet Volume 9.3, Neutrophils (%) (Auto) 73, Lymphocytes (%) (Auto) 18, Monocytes (%) (Auto) 8, Eosinophils (%) (Auto) 1, Basophils (%) (Auto) 0, Neutrophils # (Auto) 4.9, Lymphocytes # (Auto) 1.2, Monocytes # (Auto) 0.6, Eosinophils # (Auto) 0.1, Basophils # (Auto) 0.0, Sodium Level 137, Potassium Level 4.3, Chloride Level 111H, Carbon Dioxide Level 17L, Anion Gap 9, Blood Urea Nitrogen 21H, Creatinine 1.02, Estimat Glomerular Filtration Rate > 60, BUN /Creatinine Ratio 21, Glucose Level 90, Calcium Level 8.4L, Triglycerides Level 40, Cholesterol Level 128, LDL Cholesterol Direct 94, VLDL Cholesterol 8, HDL Cholesterol 30L 03/03/18 05:35: Lactic Acid Level 1.09, Troponin I < 0.30 03/03/18 11:43: Troponin I < 0.30 Laboratory Tests 03/02/18 13:12 03/03/18 03:15 A/P: Assessment: Syncope. Arrhythmia vs hypotension Hypotension improved after iv fluids Ac renal insuff, likely due to intravac vol depletion, improved with fluid admin Echo on 03/03/18: LVEF 60-65%, PASP 35 mmHg Hypertension, by history Mild anemia of undetermined etiology, managed by the [facility] H/o prostate enlargement H/o depression Plan: * Potential etiologies of syncope discussed with patient * Advised good hydration at home * Avoid antihypertensives * Implantable loop recorder to eval for cardiac arrhythmia as the cause of syncope * Advised to avoid driving or operating machinery or other situations where syncope might cause injury to self or others. This is to be until further instructions * Questions answered. He understands above issues SHAKEEL HAYDEN MD FACP FAC CCDS Mar 03, 2018 13:05
[2018-03-03] MEDS ORDERED: LIDOCAINE 1% INJ 20 ML 20 ML VIAL ONE (13:41)
--- NOTE | 2018-03-03 14:03 | Discharge Inst-Simple/Standard ---
Discharge Inst-Standard Patient Instructions/Follow Up Plan of Care/Instructions/FU: Please take your medications as written. Please follow up with your PCP in [address] Alford as he recommended. Activity as Tolerated: Yes Discharge Diet: Cardiac Diet Return to The Hospital For: Syncope, palpitations, chest pain, shortness of breath, or if you feel you are getting worse. Planned Outpatient Orders/Ref. Pneu Vac Indicated: Yes JAKI BATISTA MD Mar 03, 2018 2:03 pm
--- NOTE | 2018-03-03 17:48 | Diagnostic Imaging Report ---
PROCEDURE: US carotid duplex, bilateral. TECHNIQUE: Multiple real-time grayscale images were obtained over the carotid arteries in various projections, bilaterally. Additional duplex Doppler and color Doppler images were also obtained. INDICATION: Syncope. FINDINGS: There are no focally elevated velocities in either internal carotid artery. The ICA/CCA ratios are within normal limits, bilaterally. There is antegrade flow in the vertebral arteries, bilaterally. Grayscale images demonstrate minimal carotid plaque, bilaterally. IMPRESSION: Minimal bilateral carotid plaque however spectral analysis shows no evidence of a hemodynamically significant stenosis in either internal carotid artery. Parameters based on the consensus panel Houser-Scale and Doppler ultrasound criteria published May 2003, Radiology, Volume 229. DOPPLER (peak systolic velocity M/S Right Left CCA ICA Proximal ICA Mid ICA Distal RATIO ECA VERT Dictated by: Dictated on workstation # [id number]
--- NOTE | 2018-03-03 22:01 | OPERATIVE REPORT ---
DATE OF SERVICE: 03/03/2018 PREOPERATIVE DIAGNOSIS: Syncope. POSTOPERATIVE DIAGNOSIS: Syncope. PROCEDURE: Implantable loop recorder implantation. The patient is a 72-year-old man with syncope of undetermined etiology. Implantable loop recorder implantation was carried out after having obtained an informed consent. The left prepectoral area was prepared and draped in usual sterile fashion. A 1% lidocaine was used for local anesthesia. The device was implanted in the left prepectoral area anterior to the fourth intercostal space. The device used was a [employer]ency Digital Reveal LINQ. This was implanted in the subcutaneous pocket using the tools provided with the device. The patient tolerated the procedure well. The skin edges were closed using Dermabond and Steri-Strips. Job ID: [id number] DocumentID: [id number] Dictated Date: 03/03/2018 15:48:30 Bridge Saw Operator Date: 03/03/2018 22:01:11 Dictated By: SHAKEEL HAYDEN MD, MA, FACP, FACC,
== END 2018-03-03 14:38 | disposition home or self-care (01) ==
LOC: EDUNIT# 13:10 → ER 13:11 → UNDOADMOB 15:35 → ICU 15:35 → UNDODISOB 03-03 15:40
PROVIDERS: ADMIT Family Medicine; ATTEND Family Medicine
DX: R55 Syncope and collapse (principal); I95.9 Hypotension, unspecified; R00.1 Bradycardia, unspecified; N18.3 Chronic kidney disease, stage 3 (moderate); I12.9 Hypertensive chronic kidney disease with stage 1 through stage 4 chronic kidney disease, or unspecified chronic kidney disease; D64.9 Anemia, unspecified; I07.1 Rheumatic tricuspid insufficiency; F41.9 Anxiety disorder, unspecified; F32.9 Major depressive disorder, single episode, unspecified; N40.0 Benign prostatic hyperplasia without lower urinary tract symptoms; Z87.820 Personal history of traumatic brain injury; Z79.82 Long term (current) use of aspirin
CPT/HCPCS: 33282; 36415; 70450; 71045; 80048; 80053; 80061; 80306; 80320; 81000; 83605; 83735; 83874; 84443; 84484; 85025; 85610; 85730; 86141; 93005; 93041; 93306; 93880; 96360

== ENCOUNTER 2019-08-27 11:20 | Emergency (ER) | payer MEDICARE, OTHER ==
[~2019-08-27] VITALS: Ht 167.7 cm; Wt 90.9 kg
[~2019-08-27 11:20] MED LIST changes: -CLON0.5T13 PO; +CLON0.5T4 PO
[2019-08-27] MEDS ORDERED: LACTATED RINGERS 1,000 ML IV ONE (11:31)
--- NOTE | 2019-08-27 11:35 | NUR ---
INTERGRATION OF OF LOOP RECORDER DONE.
[2019-08-27 11:43] LABS: BASOPHILS % (AUTO) 0 % (0-10); EOSINOPHILS # (AUTO) 0.1 10^3/uL (0.0-0.3); EOSINOPHILS % (AUTO) 1 % (0-10); HEMATOCRIT 41 % (40-54); HEMOGLOBIN 14.2 G/DL (13.3-17.7); LYMPHOCYTES # (AUTO) 2.1 X 10^3 (1.0-4.0); LYMPHOCYTES % (AUTO) 28 % (12-44); MEAN CORPUSCULAR HEMOGLOBIN 32 PG (25-34); MEAN CORPUSCULAR HGB CONC 34 G/DL (32-36); MEAN CORPUSCULAR VOLUME 94 FL (80-99); MEAN PLATELET VOLUME 9.6 FL (7.4-10.4); MONOCYTES # (AUTO) 0.9 X 10^3 (0.0-1.0); MONOCYTES % (AUTO) 12 % (0-12); NEUTROPHILS # (AUTO) 4.3 X 10^3 (1.8-7.8); NEUTROPHILS % (AUTO) 59 % (42-75); PLATELET COUNT 195 10^3/uL (130-400); RED CELL DISTRIBUTION WIDTH 12.4 % (10.0-14.5); WHITE BLOOD COUNT 7.3 10^3/uL (4.3-11.0)
[2019-08-27 11:54] LABS: ALANINE AMINOTRANSFERASE 14 U/L (0-55); ALBUMIN 4.3 GM/DL (3.2-4.5); ALKALINE PHOSPHATASE 68 U/L (40-136); BILIRUBIN,TOTAL 0.8 MG/DL (0.1-1.0); BUN/CREATININE RATIO 12; CALCIUM 9.3 MG/DL (8.5-10.1); CARBON DIOXIDE 24 MMOL/L (21-32); CHLORIDE 106 MMOL/L (98-107); GFR ESTIMATED 54; GLUCOSE 123 MG/DL (70-105); MAGNESIUM 1.9 MG/DL (1.6-2.4); POTASSIUM 3.7 MMOL/L (3.6-5.0); SODIUM 139 MMOL/L (135-145); TOTAL PROTEIN 7.8 GM/DL (6.4-8.2)
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
[2019-08-27 13:33] VITALS: BP 128/88
== END 2019-08-27 13:36 | disposition home or self-care (01) ==
LOC: EDUNIT# 11:20 → ER 11:21
DX: R55 Syncope and collapse (principal); I10 Essential (primary) hypertension; F41.9 Anxiety disorder, unspecified; F32.9 Major depressive disorder, single episode, unspecified; Z87.820 Personal history of traumatic brain injury; Z79.82 Long term (current) use of aspirin
CPT/HCPCS: 36415; 80053; 83735; 84443; 84484; 85025; 93005; 93041; 96360; 96361

== ENCOUNTER → 2019-08-30 | Outpatient (CLI) | payer MEDICARE, OTHER ==
--- NOTE | 2019-08-30 16:00 | Diagnostic Imaging Report ---
PROCEDURE: CT chest, abdomen, and pelvis without contrast. TECHNIQUE: Multiple contiguous axial images were obtained through the chest, abdomen, and pelvis without the use of intravenous contrast. Auto Exposure Controls were utilized during the CT exam to meet ALARA standards for radiation dose reduction. INDICATION: Shortness of air with left chest fractures. FINDINGS: There are multiple lateral and posterior lateral right rib fracture deformities involving the seventh through eleventh ribs. No pneumothorax. There is a small amount of right pleural fluid at the posterior sulcus. There is some mild right greater than left bibasilar partial atelectasis. No findings suggestive of ellyn pulmonary contusion, laceration or pneumatocele. There is no pneumomediastinum. The atherosclerotic aorta is nonaneurysmal. No periaortic or mediastinal hemorrhage. There is some benign mediastinal and hilar lymph node granulomatous residua. Reconstruction views reveal the arthritic thoracic spine to be nonacute. The visualized portions of the bilateral shoulders, the sternum and manubrium appeared intact. Left-sided rib showed no appreciable fracture. There is no left-sided pleural fluid. ABDOMEN AND PELVIS: There is elevation of the right diaphragm without diaphragmatic defect. There is no hemoperitoneum. There is no free air. No focal mesenteric or bowel wall hematoma. Right renal low density nodularity is believed to be cystic. Urinary tract unobstructed. Atherosclerotic aorta is nonaneurysmal and unruptured. The bony structures of the pelvis and the lumbar spine reveal degenerative change but no appreciable fracture. The gallbladder surgically absent. The appendix normal. There is noninflamed sigmoid diverticulosis. The unopacified urinary bladder had an unremarkable appearance. IMPRESSION: CHEST: Consecutive right rib fractures seven through eleven with tiny amount of right-sided pleural fluid. No pneumothorax. There is perihilar and basilar partial atelectasis greater right. No left-sided chest wall injury. No mediastinal hematoma or pericardial collection. ABDOMEN AND PELVIS: No hemoperitoneum or free air. At this nonenhanced exam, no findings to suggest an abdominal pelvic solid or hollow visceral injury and no demonstrated fracture. Dictated by: Dictated on workstation # [id number]
== END ==
LOC: RAD 15:05
PROVIDERS: ATTEND Nurse Practitioner Family
DX: S22.42XA Multiple fractures of ribs, left side, initial encounter for closed fracture (principal); R06.02 Shortness of breath; R55 Syncope and collapse; R31.9 Hematuria, unspecified; W17.89XD Other fall from one level to another, subsequent encounter
CPT/HCPCS: 71250; 74176

== ENCOUNTER → 2019-09-16 | Outpatient (CLI) | payer OTHER, MEDICARE | LOC: CARD 13:07 | PROVIDERS: ATTEND Internal Medicine Cardiovascular Disease | DX: R55 Syncope and collapse (principal); R06.02 Shortness of breath; I08.0 Rheumatic disorders of both mitral and aortic valves | CPT/HCPCS: 93306 ==

== ENCOUNTER → 2019-09-24 | Outpatient (CLI) | payer OTHER, MEDICARE ==
[~2019-09-24] MED LIST changes: +REGADENOSON 0.4 MG/5 ML SYR (LEXISCAN) IV ONE
[2019-09-24] MEDS: CATHETER FLUSH 10 ML SYR IV PRN ×2 (08:10→09:20)
[2019-09-24 09:19] VITALS: BP 150/83
--- NOTE | 2019-09-24 15:03 | STRESS TEST ---
DATE OF SERVICE: 09/24/2019 RESTING AND POST REGADENOSON TECHNETIUM-99M TETROFOSMIN SPECT CT IMAGING ORDERING PHYSICIAN: Marissa Ramirez APRN CLINICAL DIAGNOSIS: Syncope. Baseline images were carried out after injection of 10.61 mCi of technetium-99m Tetrofosmin. This was followed by 0.4 mg regadenoson and 31 mCi of technetium-99m Tetrofosmin for stress imaging. The electrocardiogram showed sinus rhythm at baseline. It did not change significantly with regadenoson infusion. Review of images at rest and following stress does not indicate any significant perfusion defects consistent with significant myocardial ischemia or infarction. Gated images show normal global left ventricular systolic function with normal regional wall motion. Left ventricular ejection fraction is calculated to be 52%. Left ventricular end diastolic volume is 73 mL. TID is absent (0.99). CONCLUSIONS: 1. No evidence of significant myocardial ischemia or infarction on this study. 2. Normal regional wall motion. 3. Well preserved global left ventricular systolic function with a calculated ejection fraction of 52%. Job ID: [id number] DocumentID: [id number] Dictated Date: 09/24/2019 14:46:24 Waiter/Waitress Head Date: 09/24/2019 15:02:38 Dictated By: SHAKEEL HAYDEN MD, MA, FACP, FACC,
== END ==
LOC: CARD 07:50
PROVIDERS: ATTEND Nurse Practitioner Family
DX: R55 Syncope and collapse (principal); R06.02 Shortness of breath
CPT/HCPCS: 78452; 93017

== ENCOUNTER → 2020-04-27 | Outpatient (CLI) | payer MEDICARE ==
[~2020-04-27] MED LIST changes: +ASPI-1238 PO; -ASPI-983 PO; -ENAL20TA PO; +ENAL20TA16 PO; -REGADENOSON 0.4 MG/5 ML SYR (LEXISCAN) IV ONE
== END ==
LOC: LABNPT 08:47
PROVIDERS: ATTEND Family Medicine
DX: Z11.59 Encounter for screening for other viral diseases (principal)
CPT/HCPCS: 87635

== ENCOUNTER 2020-04-29 20:40 | Outpatient (CLI) | payer MEDICARE, OTHER | END 2020-04-30 06:49 | disposition home or self-care (01) | LOC: SLEEP 20:40 | PROVIDERS: ATTEND Family Medicine | DX: G47.33 Obstructive sleep apnea (adult) (pediatric) (principal) | CPT/HCPCS: 95811 ==

== ENCOUNTER → 2020-05-22 | Outpatient (CLI) | payer MEDICARE | LOC: LABNPT 09:00 | PROVIDERS: ATTEND Family Medicine | DX: G47.33 Obstructive sleep apnea (adult) (pediatric) (principal); Z20.828 Contact with and (suspected) exposure to other viral communicable diseases | CPT/HCPCS: 87635 ==

== ENCOUNTER 2020-05-25 20:33 | Outpatient (CLI) | payer MEDICARE, OTHER | END 2020-05-26 06:40 | disposition home or self-care (01) | LOC: SLEEP 20:33 | PROVIDERS: ATTEND Otolaryngology Otolaryngology/Facial Plastic Surgery | DX: G47.33 Obstructive sleep apnea (adult) (pediatric) (principal); G47.31 Primary central sleep apnea | CPT/HCPCS: 95811 ==

== ENCOUNTER → 2020-11-06 | Outpatient (CLI) | payer MEDICARE ==
[~2020-11-06] MED LIST changes: +ESCI20TA39 PO; -ESCI20TA45 PO
== END ==
LOC: LABNPT 08:45
PROVIDERS: ATTEND Internal Medicine Critical Care Medicine
DX: G47.33 Obstructive sleep apnea (adult) (pediatric) (principal); Z20.822 Contact with and (suspected) exposure to COVID-19
CPT/HCPCS: 87635

== ENCOUNTER 2020-11-11 20:22 | Outpatient (CLI) | payer MEDICARE | END 2020-11-12 07:05 | disposition home or self-care (01) | LOC: SLEEP 20:22 | PROVIDERS: ATTEND Otolaryngology Otolaryngology/Facial Plastic Surgery | DX: G47.33 Obstructive sleep apnea (adult) (pediatric) (principal) | CPT/HCPCS: 95811 ==

== ENCOUNTER → 2021-11-09 | Day surgery (SDC) | payer MEDICARE ==
[~2021-11-09] VITALS: Ht 167.6 cm; Wt 93.8 kg
[~2021-11-09] MED LIST changes: +LIDOCAINE 1% INJ 20 ML VIAL INJ ONE; +LIDOCAINE 1% INJ 20 ML VIAL ONE
--- NOTE | 2021-11-09 16:08 | OPERATIVE REPORT ---
DATE OF SERVICE: 11/09/2021 PREOPERATIVE DIAGNOSIS: Syncope. PROCEDURE: Explantation of implantable loop recorder that has reached end of life and implantation of a new implantable loop recorder. INDICATIONS: The patient is a 76-year-old gentleman who has a history of syncope. His implantable loop recorder has reached end of life. He has requested a new implantable loop recorder. That appears reasonable, given his symptoms of syncope. DESCRIPTION OF PROCEDURE: [facility] The left prepectoral area, the site of previous implantable loop recorder implantation was prepared and draped in the usual sterile fashion. Sharp and blunt dissection was used to open the pocket with a very small incision at the medial edge of the implantable loop recorder and the device was removed from the pocket and a new implantable loop recorder was placed in the same pocket. The wound edges were brought together using a Vicryl stitch and Dermabond and Steri-Strips. He tolerated the procedure well. The new device is Mundi LINQ II with serial #[id number]. Job ID: [id number] DocumentID: [id number] Dictated Date: 11/09/2021 11:45:57 Shop Worker Date: 11/09/2021 16:08:27 Dictated By: SHAKEEL HAYDEN MD, MA, FACP, FACC,
== END ==
LOC: CATH 09:29
PROVIDERS: ATTEND Internal Medicine Cardiovascular Disease
DX: R55 Syncope and collapse (principal); I48.0 Paroxysmal atrial fibrillation; Z79.01 Long term (current) use of anticoagulants; I95.9 Hypotension, unspecified; G47.33 Obstructive sleep apnea (adult) (pediatric); N40.0 Benign prostatic hyperplasia without lower urinary tract symptoms; F32.A Depression, unspecified; B19.20 Unspecified viral hepatitis C without hepatic coma
CPT/HCPCS: 33285; 33286; C1764

== ENCOUNTER 2022-05-31 19:05 | Emergency (ER) | payer MEDICARE ==
[~2022-05-31 19:05] MED LIST changes: -LIDOCAINE 1% INJ 20 ML VIAL INJ ONE; -LIDOCAINE 1% INJ 20 ML VIAL ONE
[2022-05-31 19:25] LABS: BASOPHILS % (AUTO) 0 % (0-10); EOSINOPHILS # (AUTO) 0.1 10^3/uL (0.0-0.3); EOSINOPHILS % (AUTO) 2 % (0-10); HEMATOCRIT 37 % (40-54); HEMOGLOBIN 12.4 g/dL (13.3-17.7); LYMPHOCYTES # (AUTO) 1.9 10^3/uL (1.0-4.0); LYMPHOCYTES % (AUTO) 30 % (12-44); MEAN CORPUSCULAR HEMOGLOBIN 33 pg (25-34); MEAN CORPUSCULAR HGB CONC 34 g/dL (32-36); MEAN CORPUSCULAR VOLUME 97 fL (80-99); MEAN PLATELET VOLUME 9.8 fL (9.0-12.2); MONOCYTES # (AUTO) 0.7 10^3/uL (0.0-1.0); MONOCYTES % (AUTO) 12 % (0-12); NEUTROPHILS # (AUTO) 3.4 10^3/uL (1.8-7.8); NEUTROPHILS % (AUTO) 56 % (42-75); PLATELET COUNT 172 10^3/uL (130-400); WHITE BLOOD COUNT 6.1 10^3/uL (4.3-11.0)
--- NOTE | 2022-05-31 19:40 | ED Syncope ---
General Chief Complaint: Dizziness/Syncope Stated Complaint: DIZZINESS Nursing Triage Note: PT ARRIVAL TO ER VIA EMS AFTER BEING CALLED BY [facility] FOR A PATIENT WHO WAS FOUND IN THE STREET WITH HIS PANTS DOWN. EMS ARRIVES AND FINDS PATIENT SITTING UPRIGHT. PT WAS COMING BACK FROM GETTING COFFEE AND BECAME DIZZY CAUSING HIM TO FALL. PT DENIES PAIN OR INJURY. PT IS ALERT AND ORIENT EXCEPT FOR LOCATION. Source of Information: Patient Exam Limitations: No Limitations History of Present Illness Date Seen by Provider: May 31, 2022 Time Seen by Provider: 19:39 Initial Comments This is a 76-year-old male with a history of TBI, syncope who presented to the ER via [facility] for concerns of altered mental state. He was found by [place] [employer] in the street with his pants down, he was found sitting in an upright position. Patient states that he was coming back from getting coffee and became dizzy causing him to fall. He denies hitting his head or any injury. He is alert and oriented to person and time. He does have notable scratches on his hands. He is on Eliquis twice daily. Allergies and Home Medications Allergies Coded Allergies: No Known Drug Allergies (Unverified , 12/08/17) Patient Home Medication List Aspirin (Aspirin EC) 81 Mg Tablet.dr, 81 MG PO DAILY, (Reported) Entered as Reported by: STANLEY BRUSH on 12/14/17 0810 Clonazepam (Clonazepam) 0.5 Mg Tablet, 0.5 MG PO BID, (Reported) Entered as Reported by: STANLEY BRUSH on 12/14/17 0810 Escitalopram Oxalate (Escitalopram Oxalate) 20 Mg Tablet, 20 MG PO DAILY, (Reported) Entered as Reported by: STANLEY BRUSH on 12/14/17 0810 Multivit-Min/Iron Fum/Folic AC (Qafkk-Ghafgwo-Hykwbsij Tablet) 1 Each Tablet, 1 EACH PO DAILY, (Reported) Entered as Reported by: STANLEY BRUSH on 12/14/17 0810 Tamsulosin HCl (Tamsulosin HCl) 0.4 Mg Cap.er.24h, 0.4 MG PO DAILY, (Reported) Entered as Reported by: STANLEY BRUSH on 12/14/17 0810 Past Ezdlryn-Pqpaok-Ilwkfy Hx Patient Social History Tobacco Use?: No Use of E-Cig and/or Vaping dev: No Substance use?: No Alcohol Use?: No Pt feels they are or have been: No Immunizations Up To Date Tetanus Booster (TDap): Unknown Influenza Vaccine Up-to-Date: No; Not Current Seasonal Allergies Seasonal Allergies: No Past Medical History Surgeries: Yes Gallbladder Respiratory: No Sleep Apnea Currently Using CPAP: Yes Currently Using BIPAP: No Cardiac: Yes Atrial Fibrillation, Syncope Neurological: Yes Traumatic Brain Injury Reproductive Disorders: No Sexually Transmitted Disease: No HIV/AIDS: No Genitourinary: Yes Benign Prostatic Hyperpl Gastrointestinal: Yes Polyps Musculoskeletal: No Endocrine: No Cataract Loss of Vision: Denies Hearing Impairment: Denies Cancer: No Psychosocial: Yes Anxiety, Depression Integumentary: No Blood Disorders: No Family Medical History No Pertinent Family Hx Physical Exam Vital Signs Vital Signs - First Documented 05/31/22 19:09 Temp 36.3 Pulse 80 Resp 20 B/P (MAP) 143/83 (103) Pulse Ox 95 O2 Delivery Room Air Capillary Refill : Less Than 3 Seconds Height, Weight, BMI Height: 5'6.00" Weight: 207lbs. 0.0oz. 93.779468cq; 33.39 BMI Method:Stated Progress/Results/Core Measures Results/Orders Lab Results Laboratory Tests Test 05/31/22 19:18 Range/Units White Blood Count 6.1 4.3-11.0 10^3/uL Red Blood Count 3.80 L 4.30-5.52 10^6/uL Hemoglobin 12.4 L 13.3-17.7 g/dL Hematocrit 37 L 40-54 % Mean Corpuscular Volume 97 80-99 fL Mean Corpuscular Hemoglobin 33 25-34 pg Mean Corpuscular Hemoglobin Concent 34 32-36 g/dL Red Cell Distribution Width 12.5 10.0-14.5 % Platelet Count 172 130-400 10^3/uL Mean Platelet Volume 9.8 9.0-12.2 fL Immature Granulocyte % (Auto) 0 % Neutrophils (%) (Auto) 56 42-75 % Lymphocytes (%) (Auto) 30 12-44 % Monocytes (%) (Auto) 12 0-12 % Eosinophils (%) (Auto) 2 0-10 % Basophils (%) (Auto) 0 0-10 % Neutrophils # (Auto) 3.4 1.8-7.8 10^3/uL Lymphocytes # (Auto) 1.9 1.0-4.0 10^3/uL Monocytes # (Auto) 0.7 0.0-1.0 10^3/uL Eosinophils # (Auto) 0.1 0.0-0.3 10^3/uL Basophils # (Auto) 0.0 0.0-0.1 10^3/uL Immature Granulocyte # (Auto) 0.0 0.0-0.1 10^3/uL Prothrombin Time 11.9 L 12.2-14.7 SEC INR Comment 0.8 0.8-1.4 Sodium Level 140 135-145 MMOL/L Potassium Level 3.5 L 3.6-5.0 MMOL/L Chloride Level 101 98-107 MMOL/L Carbon Dioxide Level 24 21-32 MMOL/L Anion Gap 15 H 5-14 MMOL/L Blood Urea Nitrogen 19 H 7-18 MG/DL Creatinine 1.18 0.60-1.30 MG/DL Estimat Glomerular Filtration Rate 64 BUN/Creatinine Ratio 16 Glucose Level 135 H 70-105 MG/DL Calcium Level 9.2 8.5-10.1 MG/DL Corrected Calcium 9.2 8.5-10.1 MG/DL Magnesium Level 1.9 1.6-2.4 MG/DL Total Bilirubin 0.4 0.1-1.0 MG/DL Aspartate Amino Transf (AST/SGOT) 27 5-34 U/L Alanine Aminotransferase (ALT/SGPT) 17 0-55 U/L Alkaline Phosphatase 69 40-136 U/L Troponin I < 0.028 <0.028 NG/ML Total Protein 7.5 6.4-8.2 GM/DL Albumin 4.0 3.2-4.5 GM/DL Serum Alcohol < 10 <10 MG/DL My Orders Orders - GIO HEAD APRN Ekg Tracing (05/31/22 19:08) Ua Culture If Indicated (05/31/22 19:08) Alcohol (05/31/22 19:15) Drug Screen Stat (Urine) (05/31/22 19:15) Cbc With Automated Diff (05/31/22 19:15) Comprehensive Metabolic Panel (05/31/22 19:15) Ct Head/Cervical Spine Wo (05/31/22 19:15) Troponin I Gold (05/31/22 19:15) Protime With Inr (05/31/22 19:41) Magnesium (05/31/22 19:41) Vital Signs/I&O 05/31/22 19:09 Temp 36.3 Pulse 80 Resp 20 B/P (MAP) 143/83 (103) Pulse Ox 95 O2 Delivery Room Air Blood Pressure Mean: 103 Departure Impression Primary Impression: Unwitnessed fall Additional Impression: Dizziness Disposition: 01 HOME, SELF-CARE Condition: Stable Departure-Patient Inst. Decision time for Depature: 20:08 Referrals: ANA ROSA DOUGLASS MD (PCP/Family) Primary Care Physician Patient Instructions: Vertigo ED, Preventing Falls ED Add. Discharge Instructions: Plan: 1. Discharge home. 2. Keep wound clean and dry 3. Remove bandage after 24 hours, then re-bandage after cleaning with mild soap and water. Wash wound daily. You can leave open to air after a few days. 4. If you are working in dirty area, cover with dry bandage. 5. Despite the best care, any wound can become infected. Watch for increase in redness, swelling, increase in pain, drainage, red streaks or fever and report any of these to your physician or return to the emergency room. 6. Your tetanus was updated today. The shot site may become warm, swollen, red or tender, this is normal. You may also have a low grade fever. 7. Observe the patient for 24-48 hours. Contact your famliy physician, or return to the ER immeidately if any of the following are observed. -Repeated vomiting -Confusion, delirium or disorientation -Blurred vision or double vision -A difference in pupil size comparing left to right (black part of the eye) -Twitching or convulsions -Clear or blood fluid from the nose or ears -Persistent headaches or the worst headache of your life -Weakness of face, arm or leg muscles -Difficulty in rousing patient (the patient should be awakened every 2 hours during the first night) 8. Take nothing stronger than Tylenol or Ibuprofen for pain. 9. Avoid alcohol intake. Do not take any sedating medications tonight. 10. Return to ER for any other new, concerning, or worsening symptoms. All discharge instructions reviewed with patient and/or family. Voiced understanding. GIO HEAD RIVERBOAT CAPTAIN May 31, 2022 19:40
[2022-05-31 19:41] LABS: ALANINE AMINOTRANSFERASE 17 U/L (0-55); ALKALINE PHOSPHATASE 69 U/L (40-136); BILIRUBIN,TOTAL 0.4 MG/DL (0.1-1.0); BUN/CREATININE RATIO 16; CALCIUM 9.2 MG/DL (8.5-10.1); CARBON DIOXIDE 24 MMOL/L (21-32); CHLORIDE 101 MMOL/L (98-107); CREATININE SERUM 1.18 MG/DL (0.60-1.30); GFR ESTIMATED 64; GLUCOSE 135 MG/DL (70-105); POTASSIUM 3.5 MMOL/L (3.6-5.0); SODIUM 140 MMOL/L (135-145); TOTAL PROTEIN 7.5 GM/DL (6.4-8.2)
[2022-05-31 19:51] LABS: INR 0.8 (0.8-1.4); PROTHROMBIN TIME PATIENT 11.9 SEC (12.2-14.7)
--- NOTE | 2022-05-31 19:53 | Diagnostic Imaging Report ---
PROCEDURE: CT head and CT cervical spine without contrast. TECHNIQUE: Multiple contiguous axial images were obtained through the brain and cervical spine without the use of intravenous contrast. Sagittal and coronal reformations through the cervical spine were then performed. Auto Exposure Controls were utilized during the CT exam to meet ALARA standards for radiation dose reduction. INDICATION: Altered mental status. Dizziness. Head and neck pain. COMPARISON: 03/02/2018. FINDINGS: CT head: No large acute territorial ischemia, mass, or hemorrhage. No midline shift or mass effect. 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 Decreased attenuation is seen in the periventricular and subcortical white matter. The ventricles and cortical sulci are prominent. The basilar cisterns are patent and unremarkable. The calvarium is intact. The visualized paranasal sinuses are clear. CT cervical spine: No acute fracture or dislocation is seen in the cervical spine. No focal osseous lesions. Congenital nonunion of the posterior arch of C1 is noted. Vertebral body heights are well-maintained. The craniocervical junction is well-maintained. Mild degenerative changes are seen in the cervical spine with disc osteophyte complexes and uncovertebral arthropathy. Soft tissues of the neck are unremarkable. IMPRESSION: 1. No hemorrhage or focal intra-axial mass. No CT evidence of large acute territorial ischemia. 2. No acute fracture or dislocation in the cervical spine. 3. 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 Dictated by: Dictated on workstation # [id number]
[2022-05-31] MEDS ORDERED: TETANUS,DIPTH,PERTUSS P/F (BOOSTRIX) 0.5 ML VIAL IM ONE (20:15)
[2022-05-31 20:28] VITALS: BP 141/72
== END 2022-05-31 20:28 | disposition home or self-care (01) ==
LOC: EDUNIT# 19:05 → ER 19:06
DX: R42 Dizziness and giddiness (principal); G47.30 Sleep apnea, unspecified; Z79.01 Long term (current) use of anticoagulants; Z99.89 Dependence on other enabling machines and devices; Z28.310 Unvaccinated for COVID-19; W19.XXXA Unspecified fall, initial encounter; Y92.410 Unspecified street and highway as the place of occurrence of the external cause
CPT/HCPCS: 70450; 72125; 80053; 83735; 84484; 85025; 85610; 93005; 99283; G0480; 36415; 80320; 90715

== ENCOUNTER 2023-02-15 06:21 | Outpatient (CLI) | payer MEDICARE, OTHER ==
[~2023-02-15] VITALS: Ht 167.6 cm; Wt 99.3 kg
[~2023-02-15 06:21] MED LIST changes: +ENAL-70 PO; -ENAL20TA16 PO
[2023-02-21] MEDS ORDERED: ATOR10TA66 PO (15:31)
[2023-02-21] MEDS ORDERED: APIX5TAB PO (15:31)
[2023-02-21] MEDS ORDERED: FINA5TAB6 PO (15:31)
[2023-02-21] MEDS ORDERED: UBID10CA5 PO (15:31)
== END 2023-02-21 15:39 | disposition home or self-care (01) ==
LOC: PREOP 06:21
PROVIDERS: ATTEND Surgery
DX: Z01.818 Encounter for other preprocedural examination (principal)

== ENCOUNTER 2023-02-27 08:54 | Day surgery (SDC) | payer MEDICARE, OTHER ==
[2023-02-27] VITALS (8 sets, daily range): BP systolic 63–136; BP diastolic 43–87
[~2023-02-27] VITALS: Ht 167.6 cm; Wt 99.3 kg
[~2023-02-27 08:54] MED LIST changes: +APIX5TAB PO; +ATOR10TA66 PO; +FINA5TAB6 PO; +UBID10CA5 PO
[2023-02-27] MEDS ORDERED: LACTATED RINGERS 1,000 ML 1,000 ML IV STA (08:57)
--- NOTE | 2023-02-27 09:03 | Progress Note-Pre Operative ---
Pre-Operative Progress Note Date of Available H&P: Feb 09, 2023 Date H&P Reviewed: Feb 27, 2023 Time H&P Reviewed: 09:01 History & Physical: H&P Reviewed, Patient Examed, No changes noted Pre-Operative Diagnosis: Hx of polyps ANGELO WYNN DO Feb 27, 2023 09:03
--- NOTE | 2023-02-27 10:42 | Anesthesia-General Post-Op ---
MAC Patient Condition Mental Status/LOC: Same as Preop Cardiovascular: Satisfactory Nausea/Vomiting: Absent Respiratory: Satisfactory Pain: Controlled Complications: Absent Post Op Complications Complications None Follow Up Care/Instructions Patient Instructions None needed. Anesthesiology Discharge Order Discharge Order Patient is doing well, no complaints, stable vital signs, no apparent adverse anesthesia problems. No complications reported per nursing. JEREMIAH DUONG CRNA Feb 27, 2023 10:42
--- NOTE | 2023-02-27 10:45 | Progress Note-Post Operative ---
Post-Operative Progess Note Surgeon (s)/Ticket Dispenser Changer (s) Surgeon ANGELO WYNN DO Ticket Dispenser Changer: Riley Gary PAULOII Pre-Operative Diagnosis Hx of polyps Post-Operative Diagnosis Polyps Diverticula int hemorrhoids Procedure & Operative Findings Date of Procedure 02/27/23 Procedure Performed/Findings Colonoscopy with snare polypectomy Colonoscopy with hot biopsy PROCEDURE NOTE: After informed consent was obtained, the patient was brought to the endoscopy suite, placed in bed in left lateral decubitus position. He was administered IV sedation by the TRUER PINION [employer] WHEEL who then monitored his vitals the entire time, heart rate, blood pressure and pulse ox and the scope was inserted and pushed into the transverse colon. I found a small flat polyp here and elected to remove it with a hot biopsy. Then pushed all the way to about 150 cm and just outside the cecum I found a large polyp and elected to remove it with snare. Finally, pushed into the cecum, took a picture of appendiceal orifice and noted the ileocecal valve. Throughout the colon I found multiple diveticula. Then slowly withdrew the scope insufflating to look circumferentially at the [place] starting in the cecum, up the ascending colon to the hepatic flexure, then down the transverse colon to the splenic flexure and into the descending colon. I found another small polyp here and removed it with hot biopsy. Continued down into the sigmoid and then into the rectum. Found another small polyp and removed it with hot biopsy. The rectal vault was too small to retroflex the scope, so I took a picture of the internal hemorrhoids as I pulled the scope out. The patient tolerated the procedure. He was recovered in endoscopy suite. Recommended for repeat colonoscopy in 3 years. Anesthesia Type IV sedation by TRUER PINION AND WHEEL Estimated Blood Loss Estimated blood loss (mL): scant Specimens/Packing Specimens Removed transverse colon polyp Asc colon polyp desc colon polyp rectal polyp ANGELO WYNN DO Feb 27, 2023 10:45
--- NOTE | 2023-02-27 10:47 | Endoscopy Discharge Instruct ---
Endo Procedure/Findings Findings 1.: Polyp 2.: Diverticulosis 3.: Internal Hemorrhoids Discharge Instructions - Activity: You might feel a little sleepy until tomorrow. This is due to the medicine you received to relax you. Until tomorrow, you should: NOT drive a car, operate machinery or power tools. NOT drink any alcoholic beverages. NOT make any important decisions or sign importortant papers. Do not return to work until tomorrow, unless otherwise instructed. Resume previous activities tomorrow. Diet: Start by taking liquids. If you tolerate liquids, advance to solid food. 1.: Colonscopy in 3 years Notify Physician - If you experience excessive bleeding, unusual abdominal pain, fever, or chest pain, contact your doctor immediately. Follow-Up: Other Follow up in my office in one week ANGELO WYNN DO Feb 27, 2023 10:47
== END 2023-02-27 11:40 | disposition home or self-care (01) ==
LOC: ENDO 08:54
PROVIDERS: ATTEND Surgery
DX: Z12.11 Encounter for screening for malignant neoplasm of colon (principal); D12.3 Benign neoplasm of transverse colon; D12.2 Benign neoplasm of ascending colon; D12.4 Benign neoplasm of descending colon; D12.8 Benign neoplasm of rectum; K57.30 Diverticulosis of large intestine without perforation or abscess without bleeding; K64.8 Other hemorrhoids; Z85.038 Personal history of other malignant neoplasm of large intestine; E66.9 Obesity, unspecified; I48.0 Paroxysmal atrial fibrillation; Z79.01 Long term (current) use of anticoagulants; Z68.35 Body mass index [BMI] 35.0-35.9, adult
CPT/HCPCS: 88305

== ENCOUNTER → 2023-05-05 | Outpatient (CLI) | payer MEDICARE, OTHER | LOC: CARD 09:13 | PROVIDERS: ATTEND Nurse Practitioner Family | DX: I34.0 Nonrheumatic mitral (valve) insufficiency (principal); I35.1 Nonrheumatic aortic (valve) insufficiency; I35.8 Other nonrheumatic aortic valve disorders | CPT/HCPCS: 93306 ==

== ENCOUNTER → 2023-05-30 | Outpatient (CLI) | payer MEDICARE ==
[~2023-05-30] MED LIST changes: +CATHETER FLUSH 10 ML SYR IVP PRN; +REGADENOSON 0.4 MG/5 ML SYR IV ONE
[2023-05-30 13:07] VITALS: BP 151/71
--- NOTE | 2023-05-30 16:36 | STRESS TEST ---
DATE OF SERVICE: 05/30/2023 RESTING AND POST REGADENOSON TECHNETIUM-99M TETROFOSMIN SPECT CT IMAGING ORDERING PHYSICIAN: Marissa Rmairez APRN. PRIMARY PHYSICIAN: Dr. Gonsales. CLINICAL DIAGNOSIS: Shortness of breath. Baseline images were carried out after injection of 10.74 mCi of technetium-99m tetrofosmin. This was followed by 0.4 mg regadenoson and 31.8 mCi of technetium-99m tetrofosmin for stress imaging. The electrocardiogram showed sinus rhythm with sinus arrhythmia. The electrocardiogram did not change significantly with regadenoson infusion. The patient tolerated the procedure well. Review of images at rest and following stress does not indicate any significant perfusion defects consistent with myocardial ischemia or infarction. Gated images show normal global left systolic function with normal regional wall motion. Left ventricular ejection fraction is calculated to be 59%. CONCLUSIONS: 1. No evidence of any significant myocardial ischemia or infarction on this study. 2. No significant regional wall motion abnormalities seen on this study. 3. Normal global left ventricular systolic function with a calculated ejection fraction of 59%. Job ID: [id number] DocumentID: [id number] Dictated Date: 05/30/2023 15:17:57 Chiller Hand Date: 05/30/2023 16:35:00 Dictated By: SHAKEEL HAYDEN MD; JARRETT; FACP; FACC;
== END ==
LOC: CARD 11:36
PROVIDERS: ATTEND Nurse Practitioner Family
DX: R06.09 Other forms of dyspnea (principal)
CPT/HCPCS: 78452; 93017; A9502